=== PATIENT | male | born 1970 ===

== ENCOUNTER 2024-07-10 14:57 | Outpatient (AMB) | payer OTHER, SELFPAY ==
[2024-07-10 15:00] VITALS: BP 120/78; PULSE 70; O2SAT 97; BMI 27.2
--- NOTE | 2024-07-10 15:00 | A.OFFVIS_ITS ---
Vital Signs 07/10/24 15:00 Height 6 ft Weight 200 lb 9.93 oz BMI 27.2 BP 120/78 Blood Pressure Location Lt brachial Position Sitting Pulse 70 Pulse Source Pulse Oximeter Pulse Oximetry (%) 97 Oxygen Delivery Method Room Air Intake Visit Reasons: asthma [employer] Required: No Allergies No Known Allergies Allergy (Verified 07/10/24 15:03) HPI Comments Details: The patient is here for pulmonary evaluation. The patient is a 53-year-old gentleman with known lifelong asthma. the patient has been doing fairly well until back in October when he had a flare-up of his asthma. At that point he had some difficulty breathing. He started using his nebulizer. However his coughing so significant that he actually passed out briefly. he did quickly regained consciousness. The patient did not go to the hospital. At that point he was evaluated by his primary care doctor he was given a course of prednisone. otherwise the patient is doing well since that episode. He does have a rescue inhaler that uses as needed. However, he does not use it often typically less than once a week. As far as further evaluation the patient did have allergy testing when he was much younger. He was told he was allergic to numerous things. He was offered allergy shots but he did not have the time to commit to the allergy therapy. He has not had any recent x-rays that he is aware of. The patient also has a history of chronic rhinitis. He also had issues sinusitis in the past although he did undergo septoplasty and that helped his deviated septum and improve his sinus issues. In addition to that the patient does have a history of eczema. This is all consistent with atrophy. The patient will benefit from medications such as Singulair this time. his respiratory exam is otherwise stable. Will go ahead and have him undergo pulmonary function studies and a chest x-ray. I do believe that the Airsupra is a very good option for him at this time specially since he is doing well and he will start the Singulair at nighttime. Will follow-up and review the PFTs and chest x-ray. If the patient continues to be symptomatic will consider blood work including allergy testing. [facility] Medical History (Updated 07/10/24 @ 22:06 by Dequan Wheeler MD) Chronic allergic rhinitis Eczema Atopy Asthma Social History (Updated 07/10/24 @ 15:04 by NICOLE Paul) Patient Tobacco Use Status: Never used Tobacco Review of Systems Const Denies fever(s) ENT Reports nasal congestion, Reports nasal discharge and Reports post nasal drip Card Denies chest pain Resp Reports cough and Reports wheezing GI Reports no additional complaints Musc Reports no additional complaints Skin/Breast Denies rash Neuro Reports no additional complaints Evan/Lymph Reports no additional complaints Aller/Immun Reports wheezing Physical Exam Vital Signs: Last Vital Signs Pulse 70 07/10/24 15:00 BP 120/78 07/10/24 15:00 Pulse Ox 97 07/10/24 15:00 Oxygen Delivery Method Room Air 07/10/24 15:00 BMI result Body Mass Index 27.2 Const General: comfortable HEENT General nose exam: Abnormal mucous membranes and turbinates present erythematous and no nasal polyps Neck Neck: Yes supple Chest Chest palpation & inspection: normal inspection of the chest Resp Effort & Inspection: normal respiratory effort and No prolonged expiratory phase Auscultation: clear to auscultation bilaterally and no wheezes Cardio Heart sounds: S1 normal heart sound present and S2 normal heart sound present GI Palpation (GI): Soft to palpation Skin General skin exam: no rashes or lesions noted Extrem General: Yes no clubbing, cyanosis or edema Assessment & Plan Assessment & Plan (1) Asthma: Code(s): J45.909 - Unspecified asthma, uncomplicated Category: Medical Qualifiers: Asthma severity: moderate Asthma persistence: persistent Asthma complication type: uncomplicated Qualified Code(s): J45.40 - Moderate persistent asthma, uncomplicated (2) Eczema: Code(s): L30.9 - Dermatitis, unspecified Category: Medical Qualifiers: Eczema type: unspecified Qualified Code(s): L30.9 - Dermatitis, unspecified (3) Chronic allergic rhinitis: Code(s): J30.9 - Allergic rhinitis, unspecified Category: Medical (4) Atopy: Code(s): Z88.9 - Allergy status to unspecified drugs, medicaments and biological substances Category: Medical Plan continue Airsupra as needed PFTs CXR consider bloodwork/Allergy testing nasal rinsing anti histamine as needed F/U 2-3 months Orders: Orders PFT pulmonary function test Today J45.909 - Unspecified asthma, uncomplicated, L30.9 - Dermatitis, unspecified, Z88.9 - Allergy status to unspecified drugs, medicaments and biological substances XR chest 2V Today J45.909 - Unspecified asthma, uncomplicated, L30.9 - Dermatitis, unspecified, Z88.9 - Allergy status to unspecified drugs, medicaments and biological substances Coding Level of Care Code New Pt Level 4 (25651) Diagnoses Moderate persistent asthma without complication J45.40 Asthma severity: moderate Asthma persistence: persistent Asthma complication type: uncomplicated Eczema, unspecified type L30.9 Eczema type: unspecified Chronic allergic rhinitis J30.9 Atopy Z88.9 Time Spent (min) 35
== END 2024-07-10 15:31 | disposition home or self-care (01) ==
PROVIDERS: PCP Internal Medicine; Visit Provider Hospitalist
DX: J45.40 Moderate persistent asthma, uncomplicated (principal); L30.9 Dermatitis, unspecified; J30.9 Allergic rhinitis, unspecified; Z88.9 Allergy status to unspecified drugs, medicaments and biological substances
CPT/HCPCS: 99204

== ENCOUNTER → 2024-07-10 14:57 | Outpatient (BNVA) | payer OTHER, SELFPAY | PROVIDERS: PCP Internal Medicine; Visit Provider Hospitalist ==

== ENCOUNTER 2024-08-16 14:48 | Outpatient (REF) | payer OTHER, SELFPAY ==
[2024-08-16 10:05] VITALS: PULSE 59; RESP 16; O2SAT 100
--- NOTE | 2024-08-16 15:00 | PFT_ITS ---
Indication: Asthma Spirometry [FEV1 to FVC 78%; FEV1 3.6 L; FVC 4.94 L. no significant response to bronchodilators noted. Maximum voluntary ventilation 105% predicted] Lung Volumes [Total lung capacity 84% predicted] Diffusion Capacity [DLCO 93% predicted] Comparisons [None] Interpretation [No obstructive nor restrictive ventilatory defects identified. No significant response to bronchodilators noted. Normal maximum voluntary ventilation. Lung volumes are low normal. Normal diffusing capacity. If asthma is in the differential methacholine challenge may be helpful for assessing for hyperreactive airways. Clinical correlation warranted.] MTDD
== END 2024-08-16 14:49 | disposition home or self-care (01) ==
LOC: HO.RESP 14:48
PROVIDERS: PCP Internal Medicine; Visit Provider Hospitalist
DX: J45.909 Unspecified asthma, uncomplicated (principal); L30.9 Dermatitis, unspecified; Z88.9 Allergy status to unspecified drugs, medicaments and biological substances
CPT/HCPCS: 94010; 94640; 94727; 94729

== ENCOUNTER 2024-10-19 10:00 | Outpatient (AMB) | payer OTHER, SELFPAY ==
[2024-10-19 10:11] VITALS: BP 124/82; PULSE 60; O2SAT 97; BMI 29.1
--- NOTE | 2024-10-19 10:11 | A.OFFVIS_ITS ---
Vital Signs 10/19/24 10:11 Height 6 ft Weight 214 lb 15.211 oz BMI 29.1 BP 124/82 Blood Pressure Location Rt brachial Position Sitting Pulse 60 Pulse Source Pulse Oximeter Pulse Oximetry (%) 97 Oxygen Delivery Method Room Air Intake Visit Reasons: Asthma Allergies No Known Allergies Allergy (Verified 10/19/24 10:15) HPI Comments Details: The patient is a 53-year-old gentleman with known lifelong asthma. the patient has been doing fairly well until back in October when he had a flare-up of his asthma. At that point he had some difficulty breathing. He started using his nebulizer. However his coughing so significant that he actually passed out briefly. he did quickly regained consciousness. The patient did not go to the hospital. At that point he was evaluated by his primary care doctor he was given a course of prednisone. otherwise the patient is doing well since that episode. He does have a rescue inhaler that uses as needed. However, he does not use it often typically less than once a week. As far as further evaluation the patient did have allergy testing when he was much younger. He was told he was allergic to numerous things. He was offered allergy shots but he did not have the time to commit to the allergy therapy. He has not had any recent x-rays that he is aware of. The patient also has a history of chronic rhinitis. He also had issues sinusitis in the past although he did undergo septoplasty and that helped his deviated septum and improve his sinus issues. In addition to that the patient does have a history of eczema. This is all consistent with atrophy. The patient will benefit from medications such as Singulair this time. his respiratory exam is otherwise stable. Will go ahead and have him undergo pulmonary function studies and a chest x-ray. I do believe that the Airsupra is a very good option for him at this time specially since he is doing well and he will start the Singulair at nighttime. Will follow-up and review the PFTs and chest x-ray. If the patient continues to be symptomatic will consider blood work including allergy testing. 10/19/2024 the patient is here for a pulmonary follow-up visit. Overall he is doing well. He does have the issue brought inhaler but he does not use it regularly. He does have triggers primarily chemicals or sensitivities of such. He also has significant allergies noted. He does have eczema consistent with atopic asthma. The patient however does not like to take a lot of medications. He did have his pulmonary function studies which we personally reviewed demonstrating normal lung capacity. No evidence of any obstruction. In addition to that he did not have a chest x-ray which is okay. I did remind him that if he develops any respiratory symptoms or if he wants to just get a baseline x-ray that he should do that. Otherwise will continue with current respiratory therapy. We did talk about some holistic approaches as well. Will follow-up in a year's time. If the patient develops any worsening symptoms prior to that he will call for an earlier assessment. [facility] Medical History (Updated 07/10/24 @ 22:06 by Dequan Wheeler MD) Chronic allergic rhinitis Eczema Atopy Asthma Social History Patient Tobacco Use Status: Never used Tobacco Review of Systems Const Denies fever(s) ENT Reports nasal congestion, Reports nasal discharge and Reports post nasal drip Card Denies chest pain Resp Reports cough and Reports wheezing GI Reports no additional complaints Musc Reports no additional complaints Skin/Breast Denies rash Neuro Reports no additional complaints Evan/Lymph Reports no additional complaints Aller/Immun Reports wheezing Physical Exam Vital Signs: Last Vital Signs Pulse 60 10/19/24 10:11 BP 124/82 10/19/24 10:11 Pulse Ox 97 10/19/24 10:11 Oxygen Delivery Method Room Air 10/19/24 10:11 BMI result Body Mass Index 29.1 Const General: comfortable HEENT General nose exam: Abnormal mucous membranes and turbinates present erythematous and no nasal polyps Neck Neck: Yes supple Chest Chest palpation & inspection: normal inspection of the chest Resp Effort & Inspection: normal respiratory effort and No prolonged expiratory phase Auscultation: clear to auscultation bilaterally and no wheezes Cardio Heart sounds: S1 normal heart sound present and S2 normal heart sound present GI Palpation (GI): Soft to palpation Skin General skin exam: no rashes or lesions noted Extrem General: Yes no clubbing, cyanosis or edema Assessment & Plan Assessment & Plan (1) Asthma: Code(s): J45.909 - Unspecified asthma, uncomplicated Category: Medical Qualifiers: Asthma complication type: uncomplicated Asthma persistence: persistent Asthma severity: moderate Qualified Code(s): J45.40 - Moderate persistent asthma, uncomplicated (2) Eczema: Code(s): L30.9 - Dermatitis, unspecified Category: Medical Qualifiers: Eczema type: unspecified Qualified Code(s): L30.9 - Dermatitis, unspecified (3) Chronic allergic rhinitis: Code(s): J30.9 - Allergic rhinitis, unspecified Category: Medical (4) Atopy: Code(s): Z88.9 - Allergy status to unspecified drugs, medicaments and biological s ubstances Category: Medical Plan continue Airsupra as needed CXR nasal rinsing anti histamine as needed F/U 8-12 months Coding Level of Care Code Est Pt Level 4 (74506) Diagnoses Moderate persistent asthma without complication J45.40 Asthma complication type: uncomplicated Asthma persistence: persistent Asthma severity: moderate Eczema, unspecified type L30.9 Eczema type: unspecified Chronic allergic rhinitis J30.9 Atopy Z88.9 Time Spent (min) 16
== END 2024-10-19 11:02 | disposition home or self-care (01) ==
PROVIDERS: PCP Internal Medicine; Visit Provider Hospitalist
DX: J45.40 Moderate persistent asthma, uncomplicated (principal); L30.9 Dermatitis, unspecified; J30.9 Allergic rhinitis, unspecified; Z88.9 Allergy status to unspecified drugs, medicaments and biological substances
CPT/HCPCS: 99214

== ENCOUNTER → 2024-10-19 10:00 | Outpatient (BNVA) | payer OTHER, SELFPAY | PROVIDERS: PCP Internal Medicine; Visit Provider Hospitalist ==